=== PATIENT | male | born 1990 | race Caucasian/White ===

== ENCOUNTER → 2018-10-15 | Outpatient (REF) | payer OTHER, MEDICAID | LOC: M SFHCLERA 20:11 | PROVIDERS: ATTEND Nurse Practitioner Family | DX: J02.9 Acute pharyngitis, unspecified (principal) ==

== ENCOUNTER → 2018-10-28 | Outpatient (REF) | payer OTHER, MEDICAID | LOC: M SFHCLERA 18:52 | PROVIDERS: ATTEND Physician Assistant | DX: J02.9 Acute pharyngitis, unspecified (principal) ==

== ENCOUNTER 2024-08-16 13:53 | Emergency (ER) | payer BC ==
[~2024-08-16] VITALS: Ht 175.3 cm; Wt 85.6 kg
[2024-08-16] MEDS ORDERED: OSEL75CA PO (18:25)
[2024-08-16 18:34] VITALS: BP 119/56; TEMP 98.4; O2SAT 99
== END 2024-08-16 18:35 | disposition home or self-care (01) ==
LOC: M ED 13:53
DX: J09.X2 Influenza due to identified novel influenza A virus with other respiratory manifestations (principal); F41.9 Anxiety disorder, unspecified; J45.909 Unspecified asthma, uncomplicated; Z88.0 Allergy status to penicillin

== ENCOUNTER → 2025-03-20 | Outpatient (CLI) | payer BC ==
[~2025-03-20] MED LIST: OSEL75CA PO
[2025-03-20 14:52] LABS: BASO # 0.0 10^3/uL (0.0-0.2); BASO % 0.5 % (0.0-1.0); EOS # 0.5 10^3/uL (0.0-0.5); EOS % 8.3 % (0.0-3.0); LYMPH # 1.6 10^3/uL (1.5-5.0); LYMPH % 23.7 % (24.0-44.0); MONO # 0.4 10^3/uL (0.0-0.8); MONO % 6.3 % (2.0-8.0); NEUTROPHILS # 4.0 10^3/uL (1.5-8.5); NEUTROPHILS % 60.9 % (36.0-66.0); PLATELET COUNT, AUTOMATED 296 10^3/uL (150-450)
[2025-03-20 15:18] LABS: ALT/SGPT 53 U/L (7.0-40); AST/SGOT 28 U/L (<34); CALCIUM LEVEL 10.0 MG/DL (8.5-10.1); CARBON DIOXIDE LEVEL 28 MMOL/L (20-31); CHLORIDE LEVEL 101 MMOL/L (98-107); CHOLESTEROL LEVEL 223 MG/DL (<200); CHOLESTEROL RISK RATIO 5.58 (<5); CREATININE FOR GFR 0.91 MG/DL (0.70-1.30); GLOMERULAR FILTRATION RATE > 90.0 (>60); LDL CHOLESTEROL 129.1 MG/DL (<100); NON-HDL-C 183.1 MG/DL; POTASSIUM SERUM 4.1 MMOL/L (3.5-5.1); SODIUM LEVEL 137 MMOL/L (136-145); TRIGLYCERIDES LEVEL 270 MG/DL (<150)
[2025-03-20 15:19] LABS: FREE T4 1.26 NG/DL (0.89-1.76); TESTOSTERONE 445 NG/DL (241-827)
[2025-03-20 15:30] LABS: ESTIMATED AVERAGE GLUCOSE 111.0 MG/DL (60-110)
== END ==
LOC: M LAB 13:57
DX: Z00.8 Encounter for other general examination (principal); E29.1 Testicular hypofunction